=== PATIENT | female | born 1965 | race Caucasian/White ===

== ENCOUNTER 2016-11-02 08:48 | Emergency (ER) | payer MEDICAID ==
[2016-11-02 10:10] LABS: PLATELET COUNT 384 x10^3mcL (130-400); RED CELL DISTRIBUTION WIDTH 13.5 % (11.5-14.5)
[2016-11-02 10:20] LABS: CALCIUM 8.5 mg/dL (8.5-10.1); CARBON DIOXIDE 30.7 mmol/L (21-32); CHLORIDE SERUM 103 mmol/L (98-107); CREATININE SERUM 0.8 mg/dL (0.6-1.0); GFR1 > 60 mL/min; GLUCOSE SERUM 100 mg/dL (74-106); SODIUM SERUM 139 mmol/L (136-145)
[2016-11-02 10:23] LABS: ALBUMIN 3.4 g/dL (3.4-5.0); ALKALINE PHOSPHATASE 107 U/L (46-116); ALT/SGPT 22 U/L (14-59); AMYLASE 49 U/L (25-115); AST/SGOT 13 U/L (15-37); BILIRUBIN TOTAL 0.4 mg/dL (0.20-1.00); LIPASE 169 IU/L (73-393); TOTAL PROTEIN, SERUM 7.3 g/dL (6.4-8.2)
[2016-11-02 10:52] LABS: BAND NEUTROPHIL 6 % (0-10); BASOPHIL 0 % (0-2); MONOCYTE 7 % (0-7); SEGMENTED NEUTROPHILS 82 % (37-75)
[2016-11-02 12:10] VITALS: BP 142/91
== END 2016-11-02 12:10 | disposition home or self-care (01) ==
LOC: ED 08:48
PROVIDERS: Emergency Medicine
DX: B27.90 Infectious mononucleosis, unspecified without complication (principal); I10 Essential (primary) hypertension
CPT/HCPCS: 83880; 86308; J0780; J1885; J7030

== ENCOUNTER 2018-09-11 12:46 | Emergency (ER) | payer BC ==
[~2018-09-11] VITALS: Ht 157.5 cm; Wt 76.4 kg
[2018-09-11 13:01] VITALS: Ht 157.5 cm; Wt 76.4 kg
[2018-09-11 15:30] VITALS: BP 135/75
== END 2018-09-11 15:30 | disposition home or self-care (01) ==
LOC: ED 12:46
DX: M72.2 Plantar fascial fibromatosis (principal); I10 Essential (primary) hypertension

== ENCOUNTER 2018-11-01 10:40 | Emergency (ER) | payer OTHER ==
[~2018-11-01] VITALS: Ht 157.5 cm; Wt 73.9 kg
[2018-11-01 13:16] VITALS: BP 161/84
[2018-11-01 13:23] LABS: UA SPECIFIC GRAVITY 1.015 (1.005-1.035); microscopic required? YES; urine erythrocyte 2+ (NEGATIVE)
== END 2018-11-01 13:16 | disposition home or self-care (01) ==
LOC: ED 10:40
PROVIDERS: Emergency Medicine
DX: M54.5 Low back pain (principal); R31.29 Other microscopic hematuria; I10 Essential (primary) hypertension

== ENCOUNTER 2019-07-23 18:50 | Emergency (ER) | payer OTHER ==
[~2019-07-23] VITALS: Ht 157.5 cm; Wt 75.3 kg
[2019-07-23 18:56] VITALS: Ht 157.5 cm; Wt 75.3 kg
[2019-07-23 19:14] LABS: BASOPHIL % 0.4 % (0-2); RED CELL DISTRIBUTION WIDTH 13.8 % (11.5-14.5)
[2019-07-23 19:25] LABS: PLATELET COUNT 423 x10^3mcL (130-400)
[2019-07-23 19:36] LABS: CARBON DIOXIDE 29.3 mmol/L (21-32); CHLORIDE SERUM 105 mmol/L (98-107); CREATININE SERUM 0.8 mg/dL (0.6-1.0); GFR1 > 60 mL/min; GLUCOSE SERUM 94 mg/dL (74-106); POTASSIUM SERUM 3.8 mmol/L (3.5-5.1); SODIUM SERUM 142 mmol/L (136-145)
[2019-07-23 19:37] LABS: ALKALINE PHOSPHATASE 107 U/L (46-116); ALT/SGPT 29 U/L (14-59); AST/SGOT 18 U/L (15-37); BILIRUBIN TOTAL 0.2 mg/dL (0.20-1.00); CALCIUM 8.9 mg/dL (8.5-10.1); TOTAL PROTEIN, SERUM 7.8 g/dL (6.4-8.2)
[2019-07-23 21:11] LABS: ALBUMIN 3.8 g/dL (3.4-5.0)
[2019-07-23 22:33] LABS: CHOLESTEROL/HDL RATIO 2.8
[2019-07-23 23:13] VITALS: BP 146/77
== END 2019-07-23 23:13 | disposition home or self-care (01) ==
LOC: ED 18:50
PROVIDERS: Emergency Medicine
DX: R07.89 Other chest pain (principal); J02.9 Acute pharyngitis, unspecified; I10 Essential (primary) hypertension
CPT/HCPCS: 36415; Q0092